=== PATIENT | female | born 1955 | race American Indian/Alaskan Native ===

== ENCOUNTER 2017-12-18 21:44 | Emergency (ER) | payer SELFPAY ==
[2017-12-18] MEDS ORDERED: ZOFRAN ONE (22:15)
[2017-12-18] MEDS ORDERED: SUBLIMAZE ONE (22:16)
[2017-12-18] MEDS ORDERED: CATAPRES PO ONE (22:17)
[2017-12-18] MEDS ORDERED: ZOFRAN IV ONE (22:17)
[2017-12-18] MEDS ORDERED: SUBLIMAZE IV ONE (22:17)
--- NOTE | 2017-12-18 22:25 | Emergency Department Report ---
HPI - General Chief Complaint: Headache Time Seen by Provider: 12/18/17 22:09 - HPI HPI: Room 3 The patient is a 62-year-old female presenting with a chief complaint of headache. The patient states she was in her usual state of health this morning. The patient states this afternoon while at rest she began developing a headache as frontal and throbbing in nature. Patient states she then developed nausea and vomiting. Patient denies any history of fever. The patient gives her pain is scored 10/10. The patient states she's been out of her blood pressure medication for one month. Location: Frontal head Duration: Constant since this afternoon Quality: Throbbing Severity: 10/10 Modifying factors: [see above] Context: [see above] Mode of transportation: [not driving] ED Past Medical Hx - Past Medical History Previous Medical History?: Yes Hx Hypertension: Yes Hx Diabetes: Yes Additional medical history: 3 - Surgical History Past Surgical History?: No - Family History Family history: no significant - Social History Smoking Status: Never Smoker Substance Use Type: None (denies illicit drug use) - Medications Home Medications: Home Medications Medication Instructions Recorded Confirmed Last Taken Type Butalb/Acetamin/Caff 50-325-40 2 tab PO Q8HR PRN #20 tablet 12/18/17 Unknown Rx [Fioricet] Ondansetron [Zofran ODT TAB] 8 mg PO Q8HR #20 tab.rapdis 12/18/17 Unknown Rx amLODIPine [Norvasc] 5 mg PO DAILY #90 tab 12/18/17 Unknown Rx ED Review of Systems ROS: Stated complaint: HEADACHE Other details as noted in HPI Constitutional: denies: fever Eyes: denies: eye pain ENT: denies: throat pain Cardiovascular: denies: chest pain Gastrointestinal: nausea, vomiting. denies: abdominal pain Genitourinary: denies: dysuria Musculoskeletal: denies: back pain Neurological: headache Physical Exam - Physical Exam Vital Signs: Vital Signs 12/18/17 21:56 Temperature 98.9 F Pulse Rate 89 Respiratory 19 Rate Blood Pressure 191/97 O2 Sat by Pulse 100 Oximetry Physical Exam: GENERAL: The patient is well-developed well-nourished female lying on stretcher appearing to be in moderate discomfort. [] HEENT: Normocephalic. Atraumatic. Extraocular motions are intact. Patient has moist mucous membranes. NECK: Supple. No meningitic signs are noted. Trachea midline CHEST/LUNGS: Clear to auscultation. There is no respiratory distress noted. HEART/CARDIOVASCULAR: Regular. There is no tachycardia. There is no gallop rub or murmur. ABDOMEN: Abdomen is soft, nontender. Patient has normal bowel sounds. There is no abdominal distention. SKIN: There is no rash. There is no edema. There is no diaphoresis. NEURO: The patient is awake, alert, and oriented. The patient is cooperative. The patient has no focal neurologic deficits. The patient has normal speech. Cranial nerves II through XII grossly intact, no drift. Moves all extremities well. Normal sensation throughout MUSCULOSKELETAL: There is no evidence of acute injury. ED Course Vital Signs 12/18/17 21:56 Temperature 98.9 F Pulse Rate 89 Respiratory 19 Rate Blood Pressure 191/97 O2 Sat by Pulse 100 Oximetry - Reevaluation(s) Reevaluation #1: 12/18/17 23:40 Patient much improved as she is now laughing and smiling with family who are in her room. States her headache is decreased to a 5/10. Blood pressure is also improved ED Medical Decision Making - Lab Data Result diagrams: 12/18/17 22:06 12/18/17 22:06 Laboratory Tests 12/18/17 12/18/17 12/18/17 22:06 22:06 22:06 WBC 10.4 RBC 4.57 Hgb 12.0 Hct 36.3 MCV 79 MCH 26 L MCHC 33 RDW 14.3 Plt Count 208 Lymph % (Auto) 17.0 [place] % (Auto) 2.9 Eos % (Auto) 0.7 Baso % (Auto) 0.6 Lymph # 1.8 [place] # 0.3 Eos # 0.1 Baso # 0.1 Seg Neutrophils % 78.8 H Seg Neutrophils # 8.2 H VBG pH 7.424 H Sodium 137 Potassium 4.5 Chloride 99.2 Carbon Dioxide 26 Anion Gap 16 BUN 18 H Creatinine 0.9 Estimated GFR > 60 BUN/Creatinine Ratio 20 Glucose 342 H Calcium 9.8 - Radiology Data Radiology results: report reviewed (CT head), image reviewed (CT head) [facility] [address] [place] [address] Cat Scan Report Signed Patient: KALPANA HERNANDEZ MR#: [id number] : 1955 Acct:[id number] Age/Sex: 62 / F ADM Date: 12/18/17 Loc: ED Attending Dr: Ordering Physician: DREW SAHNI MD Date of Service: 12/18/17 Procedure(s): CT head/brain wo con Accession Number(s): [id number] cc: DREW SAHNI MD FINAL REPORT PROCEDURE: CT HEAD/BRAIN WO CON TECHNIQUE: Computerized tomography of the head was performed without contrast material. HISTORY: hypertension, headache COMPARISON: No prior studies are available for comparison. FINDINGS: Skull and scalp: Normal. Paranasal sinuses: Normal. Ventricles and subarachnoid spaces: Normal. Cerebrum: There is mild degree bilateral periventricular nonspecific white matter hypodensity most likely representing chronic microangiopathy.. Cerebellum and brainstem: No evidence of hemorrhage, acute infarction or mass. Vasculature: Atherosclerotic calcification is noted involving bilateral internal carotid and vertebral arteries.. Comments: None. IMPRESSION: No acute intracranial abnormality. Transcribed By: UBC Dictated By: AAYUSH CHIN Electronically Authenticated By: AAYUSH CHIN Signed Date/Time: 12/18/172248 DD/ 48 TD/TT: 12/18/172248 - Differential Diagnosis hypertensive urgency, ICH Critical care attestation.: If time is entered above; I have spent that time in minutes in the direct care of this critically ill patient, excluding procedure time. ED Disposition Clinical Impression: Headache, Hypertensive urgency Disposition: DC-01 TO HOME OR SELFCARE Is pt being admited?: No Does the pt Need Aspirin: No Condition: Stable Instructions: Hypertension (ED), Hypertensive Crisis (ED), Acute Headache (ED) Additional Instructions: Return to the emergency department immediately should you develop worsening symptoms, fever, inability to tolerate food or liquid or any other concerns. Prescriptions: amLODIPine [Norvasc] 5 mg PO DAILY #90 tab Butalb/Acetamin/Caff 50-325-40 [Fioricet] 2 tab PO Q8HR PRN #20 tablet PRN Reason: Headache Ondansetron [Zofran ODT TAB] 8 mg PO Q8HR #20 tab.rapdis Referrals: PRIMARY CARE, [Primary Care Provider] - 3-5 Days [facility] [Outside] - 3-5 Days IVON COOPER MD [Staff Physician] - [place] (Dr. Cooper is a primary physician. Please follow up with him to be established as a patient for further management) Time of Disposition: 23:43
[2017-12-18 22:34] LABS: Basophils # (Auto) 0.1 K/mm3 (0.0-0.1); Basophils % (Auto) 0.6 % (0.0-1.8); Eosinophils # (Auto) 0.1 K/mm3 (0.0-0.4); Eosinophils % (Auto) 0.7 % (0.0-4.3); Hematocrit 36.3 % (30.3-42.9); Lymphocytes # (Auto) 1.8 K/mm3 (1.2-5.4); Mean Corpuscular HGB Conc 33 % (30-34); Mean Corpuscular Hemoglobin 26 pg (28-32); Mean Corpuscular Volume 79 fl (79-97); Monocytes # (Auto) 0.3 K/mm3 (0.0-0.8); Monocytes % (Auto) 2.9 % (0.0-7.3); Platelet Count 208 K/mm3 (140-440); Red Blood Count 4.57 M/mm3 (3.65-5.03); Red Cell Distribution Width 14.3 % (13.2-15.2)
[2017-12-18 22:42] LABS: BUN/Creatinine Ratio 20; Blood Urea Nitrogen 18 mg/dL (7-17); Calcium 9.8 mg/dL (8.4-10.2); Hemolysis Index 18
--- NOTE | 2017-12-18 22:52 | Cat Scan Report ---
FINAL REPORT PROCEDURE: CT HEAD/BRAIN WO CON TECHNIQUE: Computerized tomography of the head was performed without contrast material. HISTORY: hypertension, headache COMPARISON: No prior studies are available for comparison. FINDINGS: Skull and scalp: Normal. Paranasal sinuses: Normal. Ventricles and subarachnoid spaces: Normal. Cerebrum: There is mild degree bilateral periventricular nonspecific white matter hypodensity most likely representing chronic microangiopathy.. Cerebellum and brainstem: No evidence of hemorrhage, acute infarction or mass. Vasculature: Atherosclerotic calcification is noted involving bilateral internal carotid and vertebral arteries.. Comments: None. IMPRESSION: No acute intracranial abnormality.
[2017-12-18] MEDS ORDERED: FIORICET PO ONE (23:33)
[2017-12-18 23:37] VITALS: BP 166/53
== END 2017-12-19 00:58 | disposition home or self-care (01) ==
LOC: ED 21:44
DX: I16.0 Hypertensive urgency (principal); I10 Essential (primary) hypertension; E11.9 Type 2 diabetes mellitus without complications
CPT/HCPCS: 36415; 70450; 80048; 82805; 85025; 96374; 96375; 99285; J2405; J3010